=== PATIENT | female | born 1980 | race Asian ===

== ENCOUNTER → 2023-10-23 14:36 | Outpatient (REF) | payer BC, SELFPAY | LOC: WDC 14:36 | PROVIDERS: ATTENDING PHYSICIAN Obstetrics & Gynecology; FAMILY PHYSICIAN Family Medicine | DX: Z12.31 Encounter for screening mammogram for malignant neoplasm of breast (principal) | CPT/HCPCS: 77063; 77067 ==

== ENCOUNTER → 2023-12-06 15:21 | Outpatient (REF) | payer BC, SELFPAY | LOC: RAD 15:21 | PROVIDERS: ATTENDING PHYSICIAN Obstetrics & Gynecology; FAMILY PHYSICIAN Family Medicine | DX: N94.10 Unspecified dyspareunia (principal) | CPT/HCPCS: 76830; 76856 ==

== ENCOUNTER → 2024-01-03 06:35 | Outpatient (REF) | payer BC, SELFPAY ==
[2024-01-03 08:12] LABS: % Basophils 0.8 % (0-2); % Eosinophils 0.8 % (0-6); % Immature Granulocytes 0.3 % (0-0.5); % Lymphocytes 42.7 % (20.5-51.1); % Monocytes 6.2 % (1.7-9.3); % Neutrophils 49.2 % (42.2-75.2); Absolute Lymphocytes 1.7 10^3/uL (1.2-3.4); Absolute Monocytes 0.2 10^3/uL (0.1-0.6); Absolute Neutrophils 1.9 10^3/uL (1.4-6.5); Hematocrit 36.6 % (37.0-47.0); Hemoglobin 12.7 g/dL (12.0-16.0); Mean Corp Hgb Conc. 34.7 g/dL (33.0-37.0); Mean Corpuscular Hgb 32.8 pg (27.0-31.0); Mean Corpuscular Volume 94.6 fL (81.0-99.0); Mean Platelet Volume 9.7 fL (7.4-10.4); Nucleated Red Blood Cells % 0 %; Platelet Count 271 10^3/uL (130-400); Red Blood Cell Count 3.87 10^6/uL (4.20-5.40); Red Cell Dist. Width 11.9 % (11.5-14.5); White Blood Cell Count 3.9 10^3/uL (4.8-10.8)
[2024-01-03 08:15] LABS: Urine Albumin Trace (Neg - Trace); Urine Bilirubin 1+ (Negative); Urine Character Clear (Clear); Urine Color Yellow; Urine Glucose Negative (Negative); Urine Ketone Trace (Negative); Urine Leukocyte Trace (Negative); Urine Nitrite Negative (Negative); Urine Occult Blood Negative (Negative); Urine Urobilinogen Negative (Neg - 1+)
[2024-01-03 08:32] LABS: Urine Squamous Cell 16-20 /LPF (Few)
[2024-01-03 08:33] LABS: Urine Bacteria Few (Negative); Urine Mucus Many; Urine Red Blood Cell 0-2 /HPF (0-2)
[2024-01-03 09:08] LABS: ALT (SGPT) < 10 U/L (0-35); AST (SGOT) 21 U/L (14-36); Albumin 4.8 g/dl (3.5-5.0); Alkaline Phosphatase 48 U/L (38-126); Blood Urea Nitrogen 22 mg/dl (7-17); Calcium 9.6 mg/dl (8.4-10.2); Carbon Dioxide 23 mmol/L (22-30); Chloride 105 mmol/L (98-107); Glucose 104 mg/dl (70-99); HDL Cholesterol 79 mg/dl; LDL Cholesterol, Calculated 69 mg/dl; Potassium 3.9 mmol/L (3.5-5.1); Sodium 138 mmol/L (135-145); Total Bilirubin 0.7 mg/dl (0.2-1.3); Total Cholesterol 161 mg/dl (50-199); Total Protein 7.4 g/dl (6.3-8.2); Triglyceride 68 mg/dl (10-149); Very Low Density Lipoprotein 13 mg/dl (0-30); eGFR > 60.00
[2024-01-03 09:23] LABS: TSH 2.27 uIU/ml (0.47-4.68)
[2024-01-03 09:27] LABS: Ferritin 30.7 ng/ml (6.24-137)
[2024-01-03 09:59] LABS: Folate 17.8 ng/ml (2.76-20); Vitamin B12 401 pg/ml (239-931)
[2024-01-04 21:09] LABS: Homocysteine 8 umol/L (0-15)
[2024-01-05 01:49] LABS: ANA, IgG Reflex to HEp-2 None Detected (None Detected)
== END ==
LOC: REG 06:35
PROVIDERS: ATTENDING PHYSICIAN Psychiatry & Neurology Neurology; FAMILY PHYSICIAN Family Medicine
DX: Z00.00 Encounter for general adult medical examination without abnormal findings (principal); E55.9 Vitamin D deficiency, unspecified; G93.40 Encephalopathy, unspecified; E53.8 Deficiency of other specified B group vitamins
CPT/HCPCS: 36415; 80053; 80061; 81003; 81015; 82306; 82607; 82728; 82746; 83090; 84443; 85025; 86038

== ENCOUNTER → 2024-01-11 07:37 | Outpatient (REF) | payer BC, SELFPAY | LOC: EMG 07:37 | PROVIDERS: ATTENDING PHYSICIAN Family Medicine | DX: R20.0 Anesthesia of skin (principal) | CPT/HCPCS: 95886; 95911 ==

== ENCOUNTER → 2024-02-15 10:04 | Outpatient (REF) | payer BC, SELFPAY ==
[2024-02-15 11:13] LABS: % Basophils 0.4 % (0-2); % Eosinophils 0.4 % (0-6); % Immature Granulocytes 0.2 % (0-0.5); % Lymphocytes 35.1 % (20.5-51.1); % Monocytes 4.9 % (1.7-9.3); Absolute Monocytes 0.3 10^3/uL (0.1-0.6); Absolute Neutrophils 3.3 10^3/uL (1.4-6.5); Hematocrit 38.5 % (37.0-47.0); Hemoglobin 13.2 g/dL (12.0-16.0); Mean Corp Hgb Conc. 34.3 g/dL (33.0-37.0); Mean Corpuscular Hgb 32.7 pg (27.0-31.0); Mean Corpuscular Volume 95.3 fL (81.0-99.0); Nucleated Red Blood Cells % 0 %; Platelet Count 271 10^3/uL (130-400); Red Blood Cell Count 4.04 10^6/uL (4.20-5.40); Red Cell Dist. Width 11.8 % (11.5-14.5); White Blood Cell Count 5.6 10^3/uL (4.8-10.8)
[2024-02-15 12:23] LABS: Glycohemoglobin (HgbA1c) 5.6 % (4.0-5.6)
== END ==
LOC: REG 10:04
PROVIDERS: ATTENDING PHYSICIAN Family Medicine
DX: R73.01 Impaired fasting glucose (principal); D72.819 Decreased white blood cell count, unspecified
CPT/HCPCS: 36415; 83036; 85025

== ENCOUNTER 2024-08-07 13:49 | Outpatient (RCR) | payer BC, SELFPAY | END 2024-08-07 23:59 | disposition home or self-care (01) | LOC: ROT 13:49 | PROVIDERS: ATTENDING PHYSICIAN Orthopaedic Surgery; FAMILY PHYSICIAN Family Medicine | DX: M77.11 Lateral epicondylitis, right elbow (principal); Z73.6 Limitation of activities due to disability; G56.03 Carpal tunnel syndrome, bilateral upper limbs | CPT/HCPCS: 97010; 97035; 97110; 97166; 97535 ==

== ENCOUNTER → 2024-08-30 05:28 | Outpatient (REF) | payer BC, SELFPAY ==
[2024-08-30 06:28] LABS: Ferritin 49.7 ng/ml (6.24-137)
[2024-08-30 06:59] LABS: Folate > 20.0 ng/ml (2.76-20); Vitamin B12 585 pg/ml (239-931)
== END ==
LOC: OLAB 05:28
PROVIDERS: ATTENDING PHYSICIAN Psychiatry & Neurology Neurology
DX: R79.0 Abnormal level of blood mineral (principal)
CPT/HCPCS: 82607; 82728; 82746

== ENCOUNTER 2024-09-11 13:48 | Outpatient (RCR) | payer BC, SELFPAY | END 2024-09-11 23:59 | disposition home or self-care (01) | LOC: RPT 13:48 | PROVIDERS: ATTENDING PHYSICIAN Orthopaedic Surgery; FAMILY PHYSICIAN Family Medicine | DX: M77.11 Lateral epicondylitis, right elbow (principal); Z73.6 Limitation of activities due to disability; G56.03 Carpal tunnel syndrome, bilateral upper limbs | CPT/HCPCS: 97018; 97110 ==

== ENCOUNTER → 2024-11-30 15:45 | Outpatient (REF) | payer BC, SELFPAY ==
[2024-12-05 22:04] LABS: HPV, High Risk Not Detected; HPV, High Risk Source Cervical
== END ==
LOC: CPAP 15:45
PROVIDERS: ATTENDING PHYSICIAN Obstetrics & Gynecology
DX: Z01.419 Encounter for gynecological examination (general) (routine) without abnormal findings (principal); Z11.51 Encounter for screening for human papillomavirus (HPV)
CPT/HCPCS: 87624

== ENCOUNTER 2024-12-12 06:15 | Day surgery (SDC) | payer BC, SELFPAY ==
[2024-12-12 11:37] VITALS: BMI 21.9
[2024-12-12] MEDS: TYLENOL 1000 MG PO (11:46)
[2024-12-12 11:50] VITALS: BP 156/100
[2024-12-12 13:00] VITALS: BP 135/81
== END 2024-12-12 13:25 | disposition home or self-care (01) ==
LOC: SDS 06:15
PROVIDERS: ATTENDING PHYSICIAN Orthopaedic Surgery
DX: G56.01 Carpal tunnel syndrome, right upper limb (principal)
CPT/HCPCS: 64721

== ENCOUNTER → 2025-03-13 08:53 | Outpatient (REF) | payer BC, SELFPAY ==
[2025-03-15 18:30] LABS: H. pylori Antigen, Fecal Negative (Negative)
== END ==
LOC: RAD 08:53
PROVIDERS: ATTENDING PHYSICIAN Internal Medicine Gastroenterology; FAMILY PHYSICIAN Family Medicine
DX: R10.13 Epigastric pain (principal)
CPT/HCPCS: 76700; 87338

== ENCOUNTER → 2025-05-24 09:36 | Outpatient (REF) | payer BC, SELFPAY ==
[2025-05-24 11:12] LABS: Hematocrit 37.5 % (37.0-47.0); Hemoglobin 13.2 g/dL (12.0-16.0); Mean Corp Hgb Conc. 35.2 g/dL (33.0-37.0); Mean Corpuscular Volume 94.7 fL (81.0-99.0); Platelet Count 277 10^3/uL (130-400); Red Cell Dist. Width 11.6 % (11.5-14.5)
[2025-05-24 11:47] LABS: ALT (SGPT) < 10 U/L (0-35); AST (SGOT) 20 U/L (14-36); Albumin 4.9 g/dl (3.5-5.0); Alkaline Phosphatase 43 U/L (38-126); Blood Urea Nitrogen 23 mg/dl (7-17); Calcium 9.2 mg/dl (8.4-10.2); Carbon Dioxide 25 mmol/L (22-30); Chloride 106 mmol/L (98-107); Glucose 94 mg/dl (70-99); HDL Cholesterol 81 mg/dl; LDL Cholesterol, Calculated 75 mg/dl; Potassium 3.9 mmol/L (3.5-5.1); Sodium 139 mmol/L (135-145); Total Protein 7.5 g/dl (6.3-8.2); Very Low Density Lipoprotein 10 mg/dl (0-30); eGFR > 60.00
[2025-05-24 12:00] LABS: Vitamin D, 25-OH*** 31.3 ng/mL (30-80)
[2025-05-24 12:13] LABS: TSH 2.25 uIU/ml (0.47-4.68)
[2025-05-24 12:57] LABS: Glycohemoglobin (HgbA1c) 5.3 % (4.0-5.6)
== END ==
LOC: REG 09:36
PROVIDERS: ATTENDING PHYSICIAN Family Medicine; OTHER PHYSICIAN Family Medicine; OTHER PHYSICIAN Internal Medicine Gastroenterology
DX: Z00.00 Encounter for general adult medical examination without abnormal findings (principal)
CPT/HCPCS: 36415; 80053; 80061; 82306; 83036; 84443; 85027